=== PATIENT | female | born 1940 | race Caucasian/White ===

== ENCOUNTER 2021-05-24 10:52 | Emergency (ER) | payer MEDICARE | END 2021-05-24 12:08 | disposition left against medical advice (07) | LOC: ER1 10:52 | DX: R06.02 Shortness of breath (principal); E11.9 Type 2 diabetes mellitus without complications; I10 Essential (primary) hypertension; E78.5 Hyperlipidemia, unspecified; Z88.8 Allergy status to other drugs, medicaments and biological substances | CPT/HCPCS: 71045; 81001; 99285 ==

== ENCOUNTER → 2021-05-30 | Outpatient (CLI) | payer MEDICARE | LOC: HEART 5 09:07 | DX: G47.00 Insomnia, unspecified (principal); G47.61 Periodic limb movement disorder; G47.52 REM sleep behavior disorder; K21.9 Gastro-esophageal reflux disease without esophagitis; G47.53 Recurrent isolated sleep paralysis | CPT/HCPCS: 94060; 94729 ==

== ENCOUNTER → 2021-11-12 | Outpatient (CLI) | payer MEDICARE ==
[2021-11-12 13:46] LABS: HEMOGLOBIN 10.6 gm/dl (12.3-15.3); RED BLOOD COUNT 3.09 M/UL (4.00-5.10); WHITE BLOOD COUNT 9.3 K/UL (4.5-11.0)
== END ==
LOC: LAB 13:09
PROVIDERS: Internal Medicine Nephrology
DX: N18.32 Chronic kidney disease, stage 3b (principal)
CPT/HCPCS: 36415; 80053; 82570; 83970; 84100; 84156; 85027

== ENCOUNTER → 2021-12-10 | Outpatient (CLI) | payer MEDICARE ==
[2021-12-10 16:46] LABS: HEMOGLOBIN 10.6 gm/dl (12.3-15.3); RED BLOOD COUNT 3.04 M/UL (4.00-5.10); WHITE BLOOD COUNT 8.5 K/UL (4.5-11.0)
== END ==
LOC: US 10:00
PROVIDERS: Internal Medicine Nephrology
DX: N18.32 Chronic kidney disease, stage 3b (principal); N28.1 Cyst of kidney, acquired
CPT/HCPCS: 80053; 82570; 83970; 84100; 84156; 85027

== ENCOUNTER 2022-05-28 06:34 | Emergency (ER) | payer MEDICARE ==
[2022-05-28 07:13] LABS: RED BLOOD COUNT 3.36 M/UL (4.00-5.10); WHITE BLOOD COUNT 10.3 K/UL (4.5-11.0)
[2022-05-28 07:41] LABS: BUN/CREATININE RATIO 11 (0-10)
[2022-05-28] MEDS ORDERED: DOXYCYCLINE HY100 MG PO (09:17)
[2022-05-28] MEDS ORDERED: PROVENTIL HFA6.7 GM INH (09:17)
== END 2022-05-28 09:28 | disposition home or self-care (01) ==
LOC: ER1 06:34
PROVIDERS: Family Medicine
DX: J06.9 Acute upper respiratory infection, unspecified (principal); E11.9 Type 2 diabetes mellitus without complications; I10 Essential (primary) hypertension; E78.5 Hyperlipidemia, unspecified; Z88.8 Allergy status to other drugs, medicaments and biological substances; Z91.041 Radiographic dye allergy status; Z20.822 Contact with and (suspected) exposure to COVID-19
CPT/HCPCS: 36600; 71045; 80053; 81001; 82550; 82553; 82803; 83605; 83880; 84484; 85025; 87040; 93005; 94664; 99285; U0002